=== PATIENT | female | born 1965 ===

== ENCOUNTER 2018-02-06 01:29 | Observation (INO) | payer SELFPAY ==
[2018-02-06] MEDS ORDERED: Sodium Chloride 0.9% 1,000 ML ONE ×2 (01:56→08:23)
[2018-02-06] MEDS ORDERED: Sodium Chloride 0.9% 1,000 ML IV ONE (01:57)
[2018-02-06 02:25] LABS: BASO % 0.4 % (0.0-2.0); HEMOGLOBIN 11.2 g/dL (11.0-16.0); LYMPH # 0.8 K/uL (1.0-4.3); MEAN CELL VOLUME 76.6 fL (81.0-99.0); MEAN CORPUSCULAR HEMOGLOBIN 24.9 pg (27.0-31.0); MEAN CORPUSCULAR HGB CONC 32.5 g/dL (33.0-37.0); MEAN PLATELET VOLUME 8.7 fL (7.2-11.7); MONO # 0.5 K/uL (0.0-0.8); MONO % 5.1 % (0.0-10.0); NEUT # 8.6 K/uL (1.8-7.0); NEUT % 86.5 % (50.0-75.0); PLATELET COUNT 392 K/uL (130-400); RED CELL DISTRIBUTION WIDTH 17.5 % (11.5-14.5)
[2018-02-06 02:36] LABS: ALB/GLOB RATIO 1.3 (1.0-2.1); ALBUMIN 4.5 g/dL (3.5-5.0); ALT/SGPT 34 U/L (9-52); AST/SGOT 50 U/L (14-36); BLOOD UREA NITROGEN 21 mg/dL (7-17); CALCIUM 9.2 mg/dl (8.6-10.4); GFR NON-AFRICAN AMERICAN > 60; LIPASE 67 U/L (23-300)
[2018-02-06 03:46] LABS: GIANT PLATELETS PRESENT; LYMPHOCYTE 11 % (20-40); MONOCYTE 8 % (0-10); NEUTROPHIL 80 % (50-75); PLATELET ESTIMATE NORMAL (NORMAL); REACTIVE LYMPHOCYTES 1 % (0-0); TOTAL CELLS COUNTED 100
[2018-02-06 03:48] LABS: ANISOCYTOSIS MODERATE; MICROCYTOSIS MODERATE
--- NOTE | 2018-02-06 03:58 | C.PDOC ---
History Of Present Illness 52 year old female with PMHx of dwarfism, anxiety, gastritis brought to the ED by her daughter for evaluation of multiple bilious vomiting episodes today as well as upper abdominal pain. Daughter reports patient has history of recurrent similar episodes. Patient's daughter denies fever, chills, diarrhea, dysuria, hematuria, CP, SOB, rash, back pain, recent travel, sick contacts. Time Seen by Provider: 02/06/18 01:56 Chief Complaint (Nursing): Abdominal Pain History Per: Patient, Family History/Exam Limitations: no limitations Onset/Duration Of Symptoms: Days Current Symptoms Are (Timing): Still Present Location Of Pain/Discomfort: Diffuse Quality Of Discomfort: "Pain" Associated Symptoms: Nausea, Vomiting. denies: Diarrhea, Urinary Symptoms Additional History Per: Patient, Family Abnormal Vaginal Bleeding: No Past Medical History Reviewed: Historical Data, Nursing Documentation, Vital Signs Vital Signs: Last Vital Signs Temp 98 F 02/06/18 03:10 Pulse 69 02/06/18 03:10 Resp 17 02/06/18 03:10 BP 131/81 02/06/18 03:10 Pulse Ox 100 02/06/18 03:10 - Medical History PMH: Anxiety, Gastritis Surgical History: No Surg Hx Family History: States: Unknown Family Hx - Social History Hx Alcohol Use: No Hx Substance Use: No - Immunization History Hx Tetanus Toxoid Vaccination: No Hx Influenza Vaccination: No Hx Pneumococcal Vaccination: No Review Of Systems Constitutional: Negative for: Fever, Chills Cardiovascular: Negative for: Chest Pain, Palpitations Respiratory: Negative for: Shortness of Breath Gastrointestinal: Positive for: Nausea, Vomiting, Abdominal Pain. Negative for: Diarrhea Genitourinary: Negative for: Dysuria, Hematuria Musculoskeletal: Negative for: Back Pain Skin: Negative for: Rash Neurological: Negative for: Weakness, Numbness Physical Exam - Physical Exam Appears: Non-toxic, In Acute Distress, Other (moaning ) Skin: Normal Color, Warm, Dry Head: Atraumatic, Normacephalic Eye(s): bilateral: Normal Inspection Oral Mucosa: Moist Neck: Normal ROM, Supple Chest: Symmetrical Cardiovascular: Rhythm Regular Respiratory: Normal Breath Sounds, No Rales, No Rhonchi, No Wheezing Gastrointestinal/Abdominal: Soft, Tenderness (mild diffuse, greater on upper epigastric area), No Guarding, No Rebound Back: No CVA Tenderness Extremity: Normal ROM, No Tenderness, No Swelling Neurological/Psych: Oriented x3, Normal Speech, Normal Cognition ED Course And Treatment - Laboratory Results Result Diagrams: 02/06/18 02:22 02/06/18 02:22 O2 Sat by Pulse Oximetry: 100 (ON RA) Pulse Ox Interpretation: Normal - CT Scan/US CT abd/pelvis Other Rad Studies (CT/US): Read By Radiologist, Radiology Report Reviewed CT/US Interpretation: CT SCAN OF THE ABDOMEN AND PELVIS WITHOUT ORAL OR IV CONT RAST. CLINICAL INDICATION: Abdominal pain, nausea and vomiting. TECHNIQUE: Axial and reformatted sagittal and coronal images of the abdomen pelvis obtained without IV contrast administration. COMPARISON: None. FINDINGS: Bilateral basilar atelectatic pulmonary changes. Moderate gaseous distention of the stomach. Surgical changes of the stomach. Nondilated small bowel. Uncomplicated colonic diverticulosis. Mild diffuse thickening of the colon. Normal unenhanced liver. Normal gallbladder and extrahepatic biliary system. Normal unenhanced spleen. Normal pancreas. . Normal bilateral adrenal glands. Normal size of the right kidney. There is no right renal mass. There are no right renal calculi. There is no right hydronephrosis. Normal visualized right ureter. Normal size of the left kidney. There is no left renal mass. There are no left renal calculi. There is no left hydronephrosis. Normal visualized left ureter. The appendix is visualized and appears normal. There is no demonstrated peritoneal fluid. Normal abdominal aorta. Normal inferior vena cava. Normal retroperitoneum. . Normal urinary bladder. There is no pelvic mass lesion or lymphadenopathy. There is no pelvic fluid. . Normal abdominal wall. Normal osseous structures. IMPRESSION: Surgical changes of the stomach. Moderate gaseous distention of the stomach suspicious for gastric outlet obstruction. Nondilated small bowel loops. No evidence of bowel obstruction. Thickening of the colon. Under distention, spasm versus mild uncomplicated colitis. Distended bladder. Likely, retention. . Electronically signed on Feb 06, 2018 6:29:35 AM EST by: Rolf Rice M.D., Certified by [facility]ON[employer], MSK, Neuroradiology Progress Note: Blood work, UA, CT abd/pelvis ordered and reviewed. Multiple attempts (>20 times) made by myself, PA, multiple nurses for peripheral IV access, including multile EJ attempts. Patient with intractable abdominal pain and vomiting, leukocytosis, needs IV fluids/access. Right tibial IO inserted by me. Patient had pain with flushing - 40mg of 2% lidocaine slowly instilled into IO and allowed to sit for approx 2 min for local pain control. - Physician Consult Information Physician Contacted: Baltazar Valente Outcome Of Conversation: Discussed patient with hospitalist, agrees with admission for intractable abdominal pain, nausea/vomiting. Critical Care Time - Critical Care Note Total Time (in mins): 60 Documented critical care: time excludes all time spent performing seperately billable procedures. Disposition - Disposition - Scribe Statement The provider has reviewed the documentation as recorded by the Scribe Humberto Santana All medical record entries made by the Scribe were at my direction and personally dictated by me. I have reviewed the chart and agree that the record accurately reflects my personal performance of the history, physical exam, medical decision making, and the department course for this patient. I have also personally directed, reviewed, and agree with the discharge instructions and disposition.
[2018-02-06] MEDS ORDERED: Lidocaine 2% MPF (5 ml) Inj ONE (06:20)
--- NOTE | 2018-02-06 07:55 | CP.PCM.HP ---
History of Present Illness - History of Present Illness History of Present Illness: CC: intractable bilious vomiting x2 days HPI: This 52yo female with PMHx of Anxiety, Gastritis, Dwarfism - presents to the ED c/o nausea and vomiting for the past 2 days, occurring q2H. She is accompanied by her sister, who reports these symptoms have been intermittent for the past 6 months (occur roughly every 2-3 months, lasting 2-3 days). The patient last ate and last had a BM 2d ago. At that time, she at dinner without complaint, but subsequently became bloated with significant abdominal distention. Later that night she began to develop mild abdominal pain. The next morning (yesterday), she developed intractable bilious vomiting q2H, with over 7 episodes throughout the day. The abdominal pain intensified to an 8 /10. She denies feeling constipated, and believes she has not had a BM 2/2 not eating for 2 days. She has not taken anything for her symptoms. Nothing makes her symptoms better. She denies fevers, chills, headache, chest pain, SOB, diarrhea, hematemesis, hematoschezia, LE edema, or any additional acute complaints. Her sister states shes been in this country for the last 3 months, and will be returning to the [place] in 2 weeks. There she is being treated by a GI, however only conservative measures are being implemented. PMHx: Anxiety, Gastritis, Dwarfism PSHx: bowel surgery 1994 (unknown type/cause) Meds: omeprazol 40mg PO qD Allergies: NKDA (allergies listed above to dimenhydrinate, ranitidine, tramadol are not true allergies -> no throat swelling or itching; those meds were given for n/v and patient subsequently vomited) FamHx: Mom 65yo w/hx of Alzheimers; Dad 30yo 2/2 Prostate CA SocHx: denies ETOH, tobacco, or illicit drug use; unemployed PMD: none Review of Systems: -Gen: No fever, No chills, No headache, +lethargy, No weakness. -HEENT: No dizziness, No change in vision, No change in hearing, No sore throat, No dysphagia, No nasal congestion, No mucous. -Cardio: No chest pain, No palpitations, No lower extremity edema, No orthopnea. -Resp: No cough, No dyspnea, No hemoptysis, No wheezing, No pain on inspiration. -GI: +abdominal pain, +nausea/vomiting, No diarrhea/ +constipation, No hematochezia, No hematemesis. -: No dysuria, No urinary freq, No incontinence, No hematuria, No change in urinary stream. -MSK: No back pain, No muscle weakness, No radiating pain. -Skin: No itching, No rash, No lesions. -Neuro: No confusion, No numbness, No tingling, No focal weakness, No radicular pain, No syncope. -Psych: No anxiety, No depression, No H/I, No S/I, No hallucinations. Present on Admission - Present on Admission Any Indicators Present on Admission: No History of DVT/PE: No History of Uncontrolled Diabetes: No Urinary Catheter: No Decubitus Ulcer Present: No Past Patient History - Infectious Disease Hx of Infectious Diseases: None - Past Social History Smoking Status: Never Smoked - GASTROINTESTINAL Hx Gastritis: Yes - PSYCHIATRIC Hx Anxiety: Yes Hx Substance Use: No Meds Allergies/Adverse Reactions: Allergies Allergy/AdvReac Type Severity Reaction Status Date / Time dimenhydrinate Allergy Verified 02/06/18 01:39 [From Dramamine] ranitidine Allergy Verified 02/06/18 01:39 tramadol Allergy Verified 02/06/18 01:39 Physical Exam - Additional Findings Additional findings: - Constitutional Appears: Non-toxic, In Acute Distress, Other (moaning ) - Head Exam Head Exam: ATRAUMATIC, NORMAL INSPECTION - Eye Exam Eye Exam: EOMI, Normal appearance - ENT Exam ENT Exam: Mucous Membranes Dry - Neck Exam Neck Exam: absent: Tenderness, Lymphadenopathy - Respiratory Exam Respiratory Exam: NORMAL BREATHING PATTERN. absent: Rales, Wheezes - Cardiovascular Exam Cardiovascular Exam: Regular Rate, +S1, +S2 - GI/Abdominal Exam GI & Abdominal Exam: Soft, Normal Bowel Sounds, Tenderness (mid-epigastric pain 8/10; all other quadrants 3/10), No Guarding, No Rebound - Extremities Exam Extremities Exam: Full ROM, Normal Inspection. absent: Pedal Edema, Tenderness - Back Exam Back Exam: NORMAL INSPECTION. absent: CVA tenderness (L), CVA tenderness (R) - Neurological Exam Neurological Exam: Alert, Awake, Oriented x3, CN2-12 intact - Psychiatric Exam Psychiatric exam: Normal Affect, Normal Mood - Skin Skin Exam: Dry, Intact, Normal Color, Warm Results - Vital Signs Recent Vital Signs: Last Vital Signs Temp 97.8 F 02/06/18 06:54 Pulse 72 02/06/18 06:54 Resp 18 02/06/18 06:54 BP 108/72 02/06/18 06:54 Pulse Ox 100 02/06/18 06:54 - Labs Result Diagrams: 02/06/18 02:22 02/06/18 02:22 Labs: Laboratory Results - last 24 hr 02/06/18 02/06/18 02/06/18 01:44 02:22 02:22 WBC 10.0 RBC 4.50 Hgb 11.2 Hct 34.5 MCV 76.6 L MCH 24.9 L MCHC 32.5 L RDW 17.5 H Plt Count 392 MPV 8.7 Neut % (Auto) 86.5 H Lymph % (Auto) 8.0 L [place] % (Auto) 5.1 Eos % (Auto) 0.0 Baso % (Auto) 0.4 Neut # (Auto) 8.6 H Lymph # (Auto) 0.8 L [place] # (Auto) 0.5 Eos # (Auto) 0.0 Baso # (Auto) 0.0 Neutrophils % (Manual) 80 H Lymphocytes % (Manual) 11 L Reactive Lymphs % 1 H Monocytes % (Manual) 8 Platelet Estimate Normal Giant Platelets Present Anisocytosis (manual) Moderate Microcytosis (manual) Moderate Sodium 140 Potassium 4.6 Chloride 107 Carbon Dioxide 20 L Anion Gap 17 BUN 21 H Creatinine 0.7 Est GFR ( Amer) > 60 Est GFR (Non-Af Amer) > 60 POC Glucose (mg/dL) 135 H Random Glucose 143 H D Calcium 9.2 Total Bilirubin 0.6 AST 50 H ALT 34 Alkaline Phosphatase 127 H Total Protein 8.1 Albumin 4.5 Globulin 3.5 Albumin/Globulin Ratio 1.3 Lipase 67 Assessment & Plan - Assessment and Plan (Free Text) Assessment: Gastric distension possibly 2/2 gastric outlet obstruction note: do not give pt narcotics as this may worsen possible gastric outlet obstruction and GI transit time. -GI Consult, Dr. Nieves, help appreciated recommends- small bowel follow through with gastro graffin -Surgery Consult, Dr. Roberts, help appreciated -CT abd/pelv w/o contrast- no peritoneal fluid, gaseous distention of stomach with no gastric outlet obstruction, +diverticulosis, surgical changes noted, distended bladder, non-dilated small intestine. see full report. -f/u Tib/Fib Xray -NG Tube placed to wall suction -NPO -I/O placed in R tibia 2/2 poor venous access -start NS 0.9 at 100cc/hr -No reglan as this is a prokinetic agent and patient is in considerable abdominal pain. -EKG with high normal QT/QTc of 364/442. Continue Zofran 4mg IVP Q6H PRN (starting 12p) Gastritis -hold home omeprazol 40mg PO qD -start protonix 40mg IVP qD Constipation -NPO -start NS 0.9 at 100cc/hr -consider lactulose once distention and n/v improves Anxiety -start ativan 0.5mg IVP q8H PRN -psych consult, Dr. Newell, help appreciated. Prophylaxis -protonix 40mg IVP qD -SCDs Case discussed with Dr. Prema Garay - Date & Time Date: 02/06/18 Time: 07:55
[2018-02-06] MEDS ORDERED: Sodium Chloride 0.9% 1,000 ML IV SCH (08:15)
[2018-02-06] MEDS ORDERED: Lidocaine 4% (Laryng-O-Jet) Kit MM ONE (09:30)
[2018-02-06] MEDS ORDERED: Lidocaine 2% Jelly (Uro-Jet) ONE (09:31)
--- NOTE | 2018-02-06 10:18 | CT ---
Date of service: 02/06/2018 PROCEDURE: CT Abdomen and Pelvis without intravenous contrast HISTORY: abd pain, nausea/vomiting COMPARISON: None. TECHNIQUE: Technique. Contrast dose: Radiation dose: Total exam DLP = 179.74 mGy-cm. This CT exam was performed using one or more of the following dose reduction techniques: Automated exposure control, adjustment of the mA and/or kV according to patient size, and/or use of iterative reconstruction technique. FINDINGS: LOWER THORAX: Cardiomegaly LIVER: Unremarkable. No gross lesion or ductal dilatation. GALLBLADDER AND BILE DUCTS: Unremarkable. PANCREAS: Unremarkable. No gross lesion or ductal dilatation. SPLEEN: Unremarkable. ADRENALS: Unremarkable. No mass. KIDNEYS AND URETERS: Punctate right renal calcification. VASCULATURE: Unremarkable. No aortic aneurysm. No aortic atherosclerotic calcification or mural plaque present. BOWEL: Postsurgical status of the stomach with mild gastric distention. Mild colonic diverticulosis. No obstruction. APPENDIX: Unremarkable. Normal appendix. PERITONEUM: Unremarkable. No free fluid. No free air. LYMPH NODES: Unremarkable. No enlarged lymph nodes. BLADDER: Unremarkable. REPRODUCTIVE: Unremarkable. BONES: No acute fracture. OTHER FINDINGS: None. IMPRESSION: Postsurgical status of the stomach with mild gastric distention. Mild colonic diverticulosis. No obstruction.
--- NOTE | 2018-02-06 10:27 | RAD ---
Date of service: 02/06/2018 HISTORY: NGT placement COMPARISON: 01/04/2016 FINDINGS: LUNGS: No active pulmonary disease. PLEURA: No significant pleural effusion identified, no pneumothorax apparent. CARDIOVASCULAR: No aortic atherosclerotic calcification present. Normal cardiac size. No congestive change. Nasogastric tube extends to left upper abdomen. OSSEOUS STRUCTURES: No significant abnormalities. VISUALIZED UPPER ABDOMEN: Normal. OTHER FINDINGS: None. IMPRESSION: No active disease. NG tube appropriately positioned.
[2018-02-06 10:53] VITALS: BP 115/77; PULSE 95; RESP 20; TEMP 98; O2SAT 98
--- NOTE | 2018-02-06 11:39 | PCM.PSYCH ---
Initial Psychiatric Evaluation - Initial Psychiatric Evaluation Type of Admission: Voluntary Legal Status: Capacity Current Medications: Active Medications Generic Name Dose Route Start Last Admin Trade Name Freq PRN Reason Stop Dose Admin Sodium Chloride 1,000 mls @ 100 mls/hr 02/06/18 08:15 02/06/18 08:26 Sodium Chloride 0.9% IV 100 mls/hr .Q10H CARMEN Administration Lorazepam 0.5 mg 02/06/18 15:00 Ativan IVP Q8H PRN Anxiety Metoclopramide HCl 10 mg 02/06/18 18:00 Reglan IVP Q6H PRN Nausea/Vomiting Ondansetron HCl 4 mg 02/06/18 12:00 Zofran Inj IVP Q6H PRN Nausea/Vomiting Pantoprazole Sodium 40 mg 02/06/18 11:00 02/06/18 11:08 Protonix Inj IVP 40 mg DAILY CARMEN Administration Past Psychiatric History - Past Psychiatric History Pertinent Medical Hx (Current Medical&Sleep Prob, Allergies): Allergies Allergy/AdvReac Type Severity Reaction Status Date / Time dimenhydrinate Allergy Verified 02/06/18 01:39 [From Dramamine] ranitidine Allergy Verified 02/06/18 01:39 tramadol Allergy Verified 02/06/18 01:39 Omeprazole 40 mg PO DAILY 02/06/18
[2018-02-06] MEDS ORDERED: Acetaminophen 650mg/20.3ml solution UD PO ONE ×2 (12:45→13:15)
--- NOTE | 2018-02-06 13:12 | RAD ---
Date of service: 02/06/2018 PROCEDURE: Radiographs of the right tibia and fibula. HISTORY: right tibia - for IO placement COMPARISON: None available TECHNIQUE: Frontal and lateral views obtained. FINDINGS: BONES: Intraosseous cannula in proximal tibial metaphysis. No osseous fracture. No lytic or blastic osseous lesion. No additional abnormality. JOINT SPACES: Unremarkable. OTHER FINDINGS: None. IMPRESSION: Intraosseous cannula. Otherwise unremarkable.
--- NOTE | 2018-02-06 13:40 | CP.PCM.CON ---
History of Present Illness - History of Present Illness History of Present Illness: General Surgery Consult Note for Dr. Garay This is a 52F with a PMH of Anxiety, Gastritis, Dwarfism who presents to the ED due to nausea/vomiting and abdominal pain. The patient is not conversant at the time of the exam and her sister is speaking on her behalf. The pain began Sat, she came to the ED it was treated medically and she was send home. The patient currently lives in the [facility], per her sister she has suffered multiple attacks of abdominal pain, for which she goes to her GI doc in and received a "shot" which makes her feel better however she is unsure what medication is being provided. She reports that when her sister gets these attacks she is always writing in pain and non verbal and that her appearance is similar to her appearance now. The patient reports her last BM was two days ago and normal and the last time she passed gas was yesterday. She reports she takes omeprizole and pepcide at home and that she has continues taking it here in the [facility]. Nothing makes her symptoms better. She denies fevers, chills, chest pain, SOB, diarrhea. PMHx: Anxiety, Gastritis, Dwarfism PSHx: Appendicitis, intestine surgery 1994 (unknown type/cause) Meds: omeprazol 40mg PO qD Allergies: dimenhydrinate, ranitidine, tramadol SocHx: denies vices Review of Systems - Review of Systems Systems not reviewed;Unavailable: Uncooperative (ROS taken from sister ) Past Patient History - Infectious Disease Hx of Infectious Diseases: None - Past Medical History & Family History Past Medical History?: Yes - Past Social History Smoking Status: Never Smoked - CARDIAC Hx Cardiac Disorders: No - PULMONARY Hx Respiratory Disorders: No - NEUROLOGICAL Hx Neurological Disorder: No - HEENT Hx HEENT Problems: No - RENAL Hx Chronic Kidney Disease: No - ENDOCRINE/METABOLIC Hx Endocrine Disorders: No - HEMATOLOGICAL/ONCOLOGICAL Hx Blood Disorders: No - INTEGUMENTARY Hx Dermatological Problems: No - MUSCULOSKELETAL/RHEUMATOLOGICAL Hx Musculoskeletal Disorders: Yes Hx Falls: No - GASTROINTESTINAL Hx Gastritis: Yes - GENITOURINARY/GYNECOLOGICAL Hx Genitourinary Disorders: No - PSYCHIATRIC Hx Anxiety: Yes Hx Substance Use: No - SURGICAL HISTORY Hx Surgeries: Yes Other/Comment: multiple unknown in home country - ANESTHESIA Hx Anesthesia: Yes Hx Anesthesia Reactions: No Has any member of the family had a problem w/ anesthesia?: No Meds Allergies/Adverse Reactions: Allergies Allergy/AdvReac Type Severity Reaction Status Date / Time dimenhydrinate Allergy Verified 02/06/18 01:39 [From Dramamine] ranitidine Allergy Verified 02/06/18 01:39 tramadol Allergy Verified 02/06/18 01:39 - Medications Medications: Current Medications Acetaminophen (Tylenol 650 Mg Supp) 650 mg IL Q6 PRN PRN Reason: Pain, Mild (1-3) Last Admin: 02/06/18 13:30 Dose: 650 mg Sodium Chloride (Sodium Chloride 0.9%) 1,000 mls @ 100 mls/hr IV .Q10H CARMEN Last Admin: 02/06/18 08:26 Dose: 100 mls/hr Lorazepam (Ativan) 0.5 mg IVP Q8H PRN PRN Reason: Anxiety Ondansetron HCl (Zofran Inj) 4 mg IVP Q6H PRN PRN Reason: Nausea/Vomiting Pantoprazole Sodium (Protonix Inj) 40 mg IVP DAILY CARMEN Last Admin: 02/06/18 11:08 Dose: 40 mg Physical Exam - Constitutional Appears: In Acute Distress - Head Exam Head Exam: ATRAUMATIC - Eye Exam Eye Exam: EOMI - ENT Exam ENT Exam: Mucous Membranes Moist - Respiratory Exam Respiratory Exam: NORMAL BREATHING PATTERN - Cardiovascular Exam Cardiovascular Exam: +S1, +S2 - GI/Abdominal Exam GI & Abdominal Exam: Soft, Tenderness (epigastric ). absent: Distended, Firm, Guarding, Hernia Additional comments: Large midline inscsional scar - Extremities Exam Additional comments: Digits malformed - Psychiatric Exam Psychiatric exam: Anxious - Skin Skin Exam: Dry, Warm Results - Vital Signs Recent Vital Signs: Last Vital Signs Temp 98 F 02/06/18 10:52 Pulse 95 H 02/06/18 10:52 Resp 20 02/06/18 10:52 BP 115/77 02/06/18 10:52 Pulse Ox 98 02/06/18 10:52 - Labs Result Diagrams: 02/06/18 02:22 02/06/18 02:22 Labs: Laboratory Results - last 24 hr 02/06/18 02/06/18 02/06/18 01:44 02:22 02:22 WBC 10.0 RBC 4.50 Hgb 11.2 Hct 34.5 MCV 76.6 L MCH 24.9 L MCHC 32.5 L RDW 17.5 H Plt Count 392 MPV 8.7 Neut % (Auto) 86.5 H Lymph % (Auto) 8.0 L [place] % (Auto) 5.1 Eos % (Auto) 0.0 Baso % (Auto) 0.4 Neut # (Auto) 8.6 H Lymph # (Auto) 0.8 L [place] # (Auto) 0.5 Eos # (Auto) 0.0 Baso # (Auto) 0.0 Neutrophils % (Manual) 80 H Lymphocytes % (Manual) 11 L Reactive Lymphs % 1 H Monocytes % (Manual) 8 Platelet Estimate Normal Giant Platelets Present Anisocytosis (manual) Moderate Microcytosis (manual) Moderate Sodium 140 Potassium 4.6 Chloride 107 Carbon Dioxide 20 L Anion Gap 17 BUN 21 H Creatinine 0.7 Est GFR ( Amer) > 60 Est GFR (Non-Af Amer) > 60 POC Glucose (mg/dL) 135 H Random Glucose 143 H D Calcium 9.2 Total Bilirubin 0.6 AST 50 H ALT 34 Alkaline Phosphatase 127 H Total Protein 8.1 Albumin 4.5 Globulin 3.5 Albumin/Globulin Ratio 1.3 Lipase 67 - Imaging and Cardiology CT scan - abdomen Status: Image reviewed by me, Report reviewed by me CT scan - pelvis Status: Image reviewed by me, Report reviewed by me Assessment & Plan - Assessment and Plan (Free Text) Assessment: 52F with Abdominal pain nausea and vomiting Vital signs stable CBC/CMP grossly normal CT abdomen and pelvis: Small bowel non dilated, colon appears normal, gas in stomach preliminary read for gastric outlet obstruction, final read not significant for obstruction. No obvious surgical issue at this time. If patient remains in the hospital I recommend repeat CT with enteric contrast through the NGT tomorrow Patient with know GI pathology, recommend GI endoscopic evaluation to rule out ulcer, mass or other pathology No surgical intervention warranted at this time. Will followup ABG D/W Dr. Jarrod Cox PGY3
== END 2018-02-06 13:45 | disposition left against medical advice (07) ==
LOC: C.ER 01:29 → C.3T 06:37 → INTOOBSV 06:37 → UNDOADMOB 06:37 → C.9E 06:37 → C.5S 06:51 → C.9E 11:36 → C.3T 11:36
PROVIDERS: ADMIT Internal Medicine; ATTEND Internal Medicine
DX: K29.70 Gastritis, unspecified, without bleeding (principal); K59.00 Constipation, unspecified; F41.9 Anxiety disorder, unspecified; K31.1 Adult hypertrophic pyloric stenosis; Z82.0 Family history of epilepsy and other diseases of the nervous system; E34.3 Short stature due to endocrine disorder
CPT/HCPCS: 71045; 73590; 74176; 80053; 82948; 83690; 85025; 96372; 96374; 96375; 96376; 99285; C9113; G0378; J2060; J2270; J2405; J2765; J7030